=== PATIENT | female | born 1955 | race Caucasian/White ===

== ENCOUNTER → 2016-05-13 | Outpatient (CLI) | payer BC | LOC: MC.RAD 11:40 | DX: Z12.31 Encounter for screening mammogram for malignant neoplasm of breast (principal) ==

== ENCOUNTER 2017-01-18 10:44 | Inpatient (IN) | payer BC ==
[~2017-01-18] VITALS: Ht 170.2 cm; Wt 80.0 kg
[2017-02-07] VITALS (11 sets, daily range): BP systolic 100–140; BP diastolic 60–91; PULSE 53–66; TEMP 97–98.8
[2017-02-07] MEDS ORDERED: ZOLOFT 100MG100 MG PO (00:18)
[2017-02-07] MEDS ORDERED: TOPROL XL 50MG50 MG PO (00:18)
[2017-02-07] MEDS ORDERED: FLONASE NASAL S16 GM NS (00:18)
[2017-02-07] MEDS ORDERED: COLACE 100100 MG/CAP PO (01:16)
[2017-02-07] MEDS ORDERED: FOLIC ACID0.8 MG PO (01:16)
[2017-02-07] MEDS ORDERED: IRON18 MG1 PO (01:17)
[2017-02-07] MEDS ORDERED: LUTEIN6 MG PO (01:17)
[2017-02-07] MEDS ORDERED: LUTEIN 15 MG-0.1 SGL PO (01:18)
[2017-02-07] MEDS ORDERED: NORCO 325 MG-7.1 TAB PO (01:19)
[2017-02-07] MEDS ORDERED: CARDI-OMEGA1000 MG PO (01:20)
[2017-02-07] MEDS ORDERED: VITAMIN A10k PO (01:21)
[2017-02-07] MEDS ORDERED: VITAMIN C500 MG PO (01:21)
[2017-02-07] MEDS ORDERED: VITAMIN D31000 I1 PO (01:21)
[2017-02-08] VITALS: BP 119/74; PULSE 61; TEMP 97.7
[2017-02-08 04:00] VITALS: BP 106/57; PULSE 62; TEMP 98
[2017-02-08 05:48] LABS: HEMATOCRIT 36.2 % (37.0-47.0); HEMOGLOBIN 11.8 g/dl (12.5-16.0)
[2017-02-08] MEDS ORDERED: CELEBREX 200MG200 MG PO (05:52)
[2017-02-08] MEDS ORDERED: ASPI325T6 PO (05:52)
[2017-02-08] MEDS ORDERED: NORCO 325 MG-7.1 TAB PO (05:53)
[2017-02-08] MEDS ORDERED: ULTRAM 50MG TAB50 MG PO (05:53)
[2017-02-08 07:34] VITALS: BP 110/64; PULSE 57; TEMP 97.8
[2017-02-08 12:00] VITALS: BP 105/62; PULSE 55; TEMP 98.1
[2017-02-08 15:41] VITALS: BP 122/62; PULSE 60; TEMP 98.4
[2017-02-08 21:00] VITALS: BP 130/70; PULSE 62; TEMP 98.5
[2017-02-09 04:50] VITALS: BP 109/65; PULSE 62; TEMP 98.5
[2017-02-09 07:07] LABS: HEMOGLOBIN 11.8 g/dl (12.5-16.0)
[2017-02-09 07:30] VITALS: BP 110/70; PULSE 57; TEMP 97.7
[2017-02-09 11:36] VITALS: BP 106/81; PULSE 58; TEMP 97.7
== END 2017-02-09 17:00 | disposition home or self-care (01) | DRG 465 ==
LOC: JCC 02-07 05:20 → SURG 02-07 07:30 → JCC 02-08 05:20
PROVIDERS: Orthopaedic Surgery; Physician Assistant
PROC: 0SUD09Z Supplement Left Knee Joint with Liner, Open Approach (ICD-10-PCS; 2017-02-07)
PROC: 0JBP0ZZ Excision of Left Lower Leg Subcutaneous Tissue and Fascia, Open Approach (ICD-10-PCS; 2017-02-07)
PROC: 0SPD09Z Removal of Liner from Left Knee Joint, Open Approach (ICD-10-PCS; principal; 2017-02-07 07:30)
DX: T84.84XA Pain due to internal orthopedic prosthetic devices, implants and grafts, initial encounter (principal); T84.89XA Other specified complication of internal orthopedic prosthetic devices, implants and grafts, initial encounter; M25.462 Effusion, left knee; M23.8X2 Other internal derangements of left knee
CPT/HCPCS: A4314; A4315; A9284; C1776; J1100; J1885; J2250; J2405; J2704; J2765; J3010; J7120; J7121

== ENCOUNTER → 2017-06-16 | Outpatient (CLI) | payer BC ==
[~2017-06-16] MED LIST: ASPI325T6 PO; CARDI-OMEGA1000 MG PO; CELEBREX 200MG200 MG PO; COLACE 100100 MG/CAP PO; FLONASE NASAL S16 GM NS; FOLIC ACID0.8 MG PO; IRON18 MG1 PO; LUTEIN 15 MG-0.1 SGL PO; LUTEIN6 MG PO; NORCO 325 MG-7.1 TAB PO; TOPROL XL 50MG50 MG PO; ULTRAM 50MG TAB50 MG PO; VITAMIN A10k PO; VITAMIN C500 MG PO; VITAMIN D31000 I1 PO; ZOLOFT 100MG100 MG PO
== END ==
LOC: MC.RAD 06-14 15:00
DX: Z12.31 Encounter for screening mammogram for malignant neoplasm of breast (principal)

== ENCOUNTER → 2018-06-18 | Outpatient (CLI) | payer BC | LOC: MC.RAD 14:33 | DX: Z12.31 Encounter for screening mammogram for malignant neoplasm of breast (principal) ==

== ENCOUNTER → 2019-07-17 | Outpatient (CLI) | payer BC | LOC: MC.RAD 07-09 16:45 | DX: Z12.31 Encounter for screening mammogram for malignant neoplasm of breast (principal) ==

== ENCOUNTER → 2020-08-11 | Outpatient (CLI) | payer MEDICARE, BC | LOC: MC.RAD 11:45 | DX: Z12.31 Encounter for screening mammogram for malignant neoplasm of breast (principal) ==

== ENCOUNTER → 2021-09-09 | Outpatient (CLI) | payer MEDICARE, BC | LOC: MC.RAD 13:12 | DX: Z12.31 Encounter for screening mammogram for malignant neoplasm of breast (principal) ==

== ENCOUNTER → 2022-12-01 | Outpatient (CLI) | payer MEDICARE, BC | LOC: CANSCHCLI → MC.RAD 10-21 13:45 | DX: Z12.31 Encounter for screening mammogram for malignant neoplasm of breast (principal) ==

== ENCOUNTER 2023-10-11 08:57 | Day surgery (SDC) | payer MEDICARE, BC ==
[~2023-10-11] VITALS: Ht 170.2 cm; Wt 80.5 kg
[2023-10-11] VITALS (369 sets, daily range): BP systolic 93–135; BP diastolic 62–94; PULSE 59–65; TEMP 97.8–98.5; O2SAT 91–100
[2023-10-11] MEDS ORDERED: 1/2 NS 1,000 ML IV SCH ×2 (09:15→14:30)
[2023-10-11 09:51] LABS: HEMATOCRIT 43.8 % (37.0-47.0); HEMOGLOBIN 14.1 g/dl (12.5-16.0); MEAN CELL VOLUME 92 fl (80.0-100.0); MEAN CORPUSCULAR HEMOGLOBIN 30 pg (27-31); MEAN CORPUSCULAR HGB CONC 32 g/dl (33.0-37.0); MEAN PLATELET VOLUME 10.9 fl (7.4-10.4); PLATELET COUNT 170 K/mm3 (130-400); RED BLOOD COUNT 4.74 M/mm3 (4.10-5.30); REDCELL DISTRIBUTION WIDTH-CV 13.5 % (11.5-14.5)
[2023-10-11] MEDS ORDERED: CRESTOR40 MG PO (09:55)
[2023-10-11] MEDS ORDERED: BENICAR40 MG PO (09:56)
[2023-10-11 09:57] LABS: PROTHROMBIN TIME 11.4 SECONDS (9.7-12.8)
[2023-10-11] MEDS ORDERED: ASPIRIN 81M81 MG/TA2 PO (09:58)
[2023-10-11 10:00] LABS: PARTIAL THROMBOPLASTIN TIME 34.1 SECONDS (26.0-37.0)
[2023-10-11] MEDS ORDERED: MAG OX 250 (10:02)
[2023-10-11] MEDS ORDERED: MULTIPLE VITAMI1 CAP PO (10:02)
[2023-10-11] MEDS ORDERED: OMEGA-3 1000 MG1 CAP PO (10:05)
[2023-10-11] MEDS ORDERED: MOBIC 7.5MG7.5 MG PO (10:06)
[2023-10-11] MEDS ORDERED: ALLEGRA 180MG180 MG PO (10:07)
[2023-10-11 10:19] LABS: CALCIUM 9.4 mg/dL (8.4-10.2); CREATININE, serum 0.74 mg/dL (0.57-1.11); POTASSIUM 4.2 mEq/L (3.5-4.5)
--- NOTE | 2023-10-11 12:13 | NUR ---
SEE MERGE FOR PROCEDURE DOCUMENTATION
[2023-10-11] MEDS ORDERED: Heparin 1,000 UNITS/ML 10 ML Multi-Dose VIAL IV SCH (13:11)
[2023-10-11] MEDS ORDERED: Bivalirudin 250 MG in NS 50 ML IV SCH (13:23)
[2023-10-11] MEDS ORDERED: Heparin 1,000 UNITS/ML 10 ML Multi-Dose VIAL IA SCH (13:39)
[2023-10-11] MEDS ORDERED: Nitroglycerin 100 MCG/ML (Cath Lab) 10 ML VIAL IA SCH (13:41)
[2023-10-11] MEDS ORDERED: Verapamil 2.5 MG/ML 2 ML VIAL IA SCH (13:43)
[2023-10-11] MEDS ORDERED: Midazolam 2 MG/2 ML VIAL IV SCH (13:46)
[2023-10-11] MEDS ORDERED: fentaNYL 50 MCG/ML 2 ML VIAL IV SCH (14:00)
[2023-10-11] MEDS ORDERED: Ticagrelor 90 MG TAB PO SCH ×2 (14:06→21:00)
[2023-10-11] MEDS ORDERED: Iohexol 350 - 100 ML VIAL INCOR ONE (14:07)
[2023-10-11] MEDS ORDERED: Bisacodyl 5 MG TAB PO PRN (14:15)
[2023-10-11] MEDS ORDERED: Nitroglycerin/D5W 250 ML IV SCH ×2 (14:21→14:30)
[2023-10-11] MEDS ORDERED: Magnes Hydrox (MOM) 80 MG/ML 30 ML CUP PO PRN (14:30)
[2023-10-11] MEDS ORDERED: Acetaminophen 325 MG TAB PO PRN (14:30)
[2023-10-11] MEDS ORDERED: Ondansetron 4 MG/2 ML VIAL IV PRN (14:30)
--- NOTE | 2023-10-11 19:29 | NUR ---
PT TO ICU FROM [facility]SEL AT 1425. VSS UPON ARRIVAL, PT ON ROOM AIR. NITRO AND 1/2 NS INFUSING TO PERIPHERAL R AC IV. CATH SITES TO R RADIAL AND R FEMORAL ARTERIES NOTED TO BE CDI, NO BLEEDING OR SWELLING NOTED. TR BAND IN PLACE TO R WRIST. ANGIOSEAL, GAUZE, TEGADERM DRESSING IN PLACE TO R GROIN. BLADDER SCAN DONE AT 1530, 1100ML OF URINE IN BLADDER. PT UNABLE TO VOID. STRAIGHT CATH DONE, PT TOLERATED WELL, 1200 ML CLEAR YELLOW URINE DRAINED FROM BLADDER. PT ABLE TO EAT AND DRINK, DENIES N/V. PT UP TO BEDSIDE COMMODE TO VOID AT 1830 AFTER FLAT TIME COMPLETE. PT AMBULATES W/ STEADY GAIT, IS ALERT AND ORIENTED AND USES CALL LIGHT APPROPRIATELY.
--- NOTE | 2023-10-11 19:43 | NUR ---
PT VERBALIZES NO NEEDS OR DISTRESS AT THIS TIME. RIGHT GROIN SITE SOFT. DRESSING CLEAN DRY AND INTACT. NO BRUISING NOTED. RIGHT RADIAL WRIST SITE BRUISED. 8 ML LEFT IN THE TR BAND.
[2023-10-11] MEDS ORDERED: Rosuvastatin 40 MG **** subs to Atorvastatin 80 MG PO SCH (21:00)
[2023-10-11] MEDS ORDERED: Atorvastatin 80 MG TAB PO SCH (21:00)
[2023-10-11] MEDS ORDERED: Melatonin 3 MG TAB PO PRN (21:00)
[2023-10-12] VITALS (446 sets, daily range): BP systolic 110–144; BP diastolic 70–88; PULSE 65; TEMP 97.7–97.8; O2SAT 90–100
--- NOTE | 2023-10-12 | NUR ---
TR BAND TO RIGHT WRIST COMPLETELY DEFLATED AT 2310. BAND LEFT IN PLACE TO REMIND PT TO LIMIT USE OF RUE. WRIST BRUISED BUT SOFT. GROIN REMAINS SOFT. NO BLEEDING OR BRUISING NOTED. PT'S HEADACHE RESOLOVED AFTER TYLENOL WAS GIVEN. PT GIVEN MELATONIN FOR SLEEP. REMAINS STABLE ON ROUNDS. PT STATES SHE FEELS HER "HEART FLUTTER" EVERY ONCE IN A WHILE. STATES IT GOES AWAY DISCUSSED WITH PATIENT THAT SHE MAY BE FEELING REPERFUSION OF HER HEART. THE AREAS THAT HAD DECREASED BLOOD FLOW ARE NOW GETTING BETTER BLOOD SUPPLY. PT DENIES CHEST PAIN AND OR SHORTNESS OF BREATH. VOIDING WITHOUT DIFFICULTY. NO SIGN OF DISTRESS AT THIS TIME. CONTINUE WITH PLAN OF CARE.
[2023-10-12 05:27] LABS: BASO # 0.1 K/mm3 (0.0-0.2); BASO % 0.6 % (0.0-2.0); EOS # 0.1 K/mm3 (0.0-0.7); GRAN # 5.7 K/mm3 (1.4-6.5); GRAN % 71.1 % (42.2-75.2); HEMATOCRIT 39.9 % (37.0-47.0); HEMOGLOBIN 13.3 g/dl (12.5-16.0); LYMPH # 1.5 K/mm3 (1.2-3.4); LYMPH % 18.3 % (20.0-51.0); MEAN CELL VOLUME 90 fl (80.0-100.0); MEAN CORPUSCULAR HEMOGLOBIN 30 pg (27-31); MEAN CORPUSCULAR HGB CONC 33 g/dl (33.0-37.0); MEAN PLATELET VOLUME 10.6 fl (7.4-10.4); MONO # 0.7 K/mm3 (0.1-0.6); MONO % 8.8 % (1.7-9.3); PLATELET COUNT 149 K/mm3 (130-400); RED BLOOD COUNT 4.43 M/mm3 (4.10-5.30); REDCELL DISTRIBUTION WIDTH-CV 13.4 % (11.5-14.5)
[2023-10-12 05:42] LABS: CALCIUM 9.6 mg/dL (8.4-10.2); CREATININE, serum 0.79 mg/dL (0.57-1.11); POTASSIUM 3.7 mEq/L (3.5-4.5)
--- NOTE | 2023-10-12 05:59 | NUR ---
PT REMAINS STABLE ON ROUNDS. RIGHT WRIST AND GROIN SITES UNCHANGED. NO COMPLAINTS OF CHEST PAIN OR SHORTNESS OF BREATH. PLAN IS FOR PT GO GO HOME THIS MORNING. IV FLUIDS STOPPED AT 0600. CONTINUE PLAN OF CARE.
--- NOTE | 2023-10-12 07:30 | NUR ---
Nitro drip stopped. IV flushed with saline.
--- NOTE | 2023-10-12 07:45 | NUR ---
Awake and alert sitting in bed; Requesting assistance to use the bathroom. Radial and groin site assessed and no complication observed. Assisted to the bathroom with standby assist only. VS stable upon return to bed. Call light left within reach.
[2023-10-12] MEDS ORDERED: Fluticasone Nasal 50 MCG/Spray 16 GM BOTTLE NS SCH (09:00)
[2023-10-12] MEDS ORDERED: Magnesium Oxide 400 MG TAB PO SCH (09:00)
[2023-10-12] MEDS ORDERED: Olmesartan 40 MG **** subs to Losartan 100 MG PO SCH (09:00)
[2023-10-12] MEDS ORDERED: Losartan 50 MG TAB PO SCH (09:00)
[2023-10-12] MEDS ORDERED: Omega-3 Fatty Acid Esters (OTC) 1,000 MG CAP PO SCH (09:00)
[2023-10-12] MEDS ORDERED: Fexofenadine 180 MG **** subs to Loratadine 10 MG PO SCH (09:00)
[2023-10-12] MEDS ORDERED: Loratadine 10 MG TAB PO SCH (09:00)
[2023-10-12] MEDS ORDERED: Cholecalciferol (Vit D3) 1000 Units TAB PO SCH (09:00)
[2023-10-12] MEDS ORDERED: Multivitamin TAB PO SCH (09:00)
[2023-10-12] MEDS ORDERED: Sertraline 100 MG TAB PO SCH (09:00)
[2023-10-12] MEDS ORDERED: Meloxicam 7.5 MG TAB PO SCH (09:00)
[2023-10-12] MEDS ORDERED: BRILINTA90 MG PO (09:56)
[2023-10-12] MEDS ORDERED: LIPITOR 80MG80 MG PO (09:58)
--- NOTE | 2023-10-12 11:35 | NUR ---
Discharge instructions reviewed with patinet and family. All questions and concerns addressed at this time. Assisted out to the ER entrance via wheelchair and left with . Alert and oriented and in no distress upon discharge.
--- NOTE | 2023-10-12 11:35 | NUR ---
Reviewed risk factors for heart disease. Covered applicable modifiable risk factors including: tobacco cessation, HTN, hyperlipidemia, diabetes, overweight/obesity, sedentary lifestyle and stress/depression. Patient/ stated that pt will be having a Left NIKI on Dec 17. Informed the patient that we will follow up with her monthyly and when she has finished her PT from her ortho sx we can get her started in Cardiac Rehab. Pt voiced understanding and agreed to the above plan.
--- NOTE | 2023-10-12 11:35 | NUR ---
Patient was with cardiology when adoption social worker attempted to meet with her. SW met with patient's nurse to determine any needs. Patient's nurse reported no concerns or needs from social work and patient will discharge home today with her spouse, Perry. SW attempted to meet with patient but was currently meeting with another provider.
== END 2023-10-12 11:35 | disposition home or self-care (01) ==
LOC: COL.CAR 08:57 → ICU 14:30 → COL.CAR 10-12 11:35
PROVIDERS: Internal Medicine Cardiovascular Disease
DX: I25.10 Atherosclerotic heart disease of native coronary artery without angina pectoris (principal); Z79.82 Long term (current) use of aspirin; Z79.899 Other long term (current) drug therapy
CPT/HCPCS: OP; C1725; C1760; C1769; C1874; C1876; C1887; C1894; J0583; J1644; J2250; J2305; J3010; Q9967

== ENCOUNTER 2023-10-21 12:01 | Emergency (ER) | payer MEDICARE, BC ==
[~2023-10-21] VITALS: Ht 170.2 cm; Wt 85.5 kg
[~2023-10-21 12:01] MED LIST changes: +ALLEGRA 180MG180 MG PO; +ASPIRIN 81M81 MG/TA2 PO; +BENICAR40 MG PO; +BRILINTA90 MG PO; +CRESTOR40 MG PO; +LIPITOR 80MG80 MG PO; +MAG OX 250; +MOBIC 7.5MG7.5 MG PO; +MULTIPLE VITAMI1 CAP PO; +OMEGA-3 1000 MG1 CAP PO
[2023-10-21 12:07] VITALS: TEMP 97.6
[2023-10-21 12:58] LABS: BASO # 0.1 K/mm3 (0.0-0.2); EOS # 0.1 K/mm3 (0.0-0.7); EOS % 1.1 % (0.0-4.0); GRAN % 64.6 % (42.2-75.2); HEMATOCRIT 40.6 % (37.0-47.0); HEMOGLOBIN 13.2 g/dl (12.5-16.0); LYMPH # 1.5 K/mm3 (1.2-3.4); LYMPH % 23.8 % (20.0-51.0); MEAN CELL VOLUME 92 fl (80.0-100.0); MEAN CORPUSCULAR HEMOGLOBIN 30 pg (27-31); MEAN CORPUSCULAR HGB CONC 33 g/dl (33.0-37.0); MEAN PLATELET VOLUME 10.6 fl (7.4-10.4); MONO # 0.6 K/mm3 (0.1-0.6); MONO % 9.2 % (1.7-9.3); PLATELET COUNT 200 K/mm3 (130-400); REDCELL DISTRIBUTION WIDTH-CV 13.4 % (11.5-14.5)
[2023-10-21 13:13] LABS: BILIRUBIN,TOTAL 0.7 mg/dL (0.2-1.2); CALCIUM 9.6 mg/dL (8.4-10.2); CREATININE, serum 0.73 mg/dL (0.57-1.11); TOTAL PROTEIN 6.7 g/dl (6.2-8.1)
[2023-10-21] MEDS ORDERED: ELIQUIS 5MG PO (13:30)
[2023-10-21 13:58] VITALS: BP 127/83; PULSE 64
== END 2023-10-21 14:09 | disposition home or self-care (01) ==
LOC: COL.ER 12:01
PROVIDERS: Physician Assistant
DX: M79.605 Pain in left leg (principal); Z79.82 Long term (current) use of aspirin; Z79.02 Long term (current) use of antithrombotics/antiplatelets

== ENCOUNTER → 2023-10-24 | Outpatient (CLI) | payer MEDICARE, BC ==
[~2023-10-24] MED LIST changes: +ELIQUIS 5MG PO
== END ==
LOC: COL.RAD 07:56
DX: M79.605 Pain in left leg (principal)

== ENCOUNTER → 2023-12-07 | Outpatient (CLI) | payer MEDICARE, BC ==
[2005-03-18 09:25] VITALS: TEMP 96.8
== END ==
LOC: MC.RAD 11:00
DX: Z12.31 Encounter for screening mammogram for malignant neoplasm of breast (principal)

== ENCOUNTER 2023-12-15 13:56 | Outpatient (RCR) | payer MEDICARE, BC | END 2023-12-21 | disposition home or self-care (01) | LOC: COL.CR | DX: Z02.89 Encounter for other administrative examinations (principal) ==